=== PATIENT | female | born 1970 | race Caucasian/White ===

== ENCOUNTER → 2017-08-09 14:35 | Outpatient (CLI) | payer OTHER, SELFPAY ==
--- NOTE | 2017-08-09 | DI.RAD.S_ITS ---
PROCEDURE: XR ANKLE RT MIN 3V INDICATIONS: ? BONE SPUR TECHNIQUE: 3 views of the ankle were acquired. COMPARISON: None. FINDINGS: Bones: No fractures or dislocations. Ankle mortise is normally aligned. No suspicious bony lesions. Soft tissues: No tibiotalar joint effusion. Achilles tendon appears normal. IMPRESSION: Normal examination. No calcaneal bone spurring is seen. Dictated by: Jose Crocker M.D. on 08/09/2017 at 15:16 Approved by: Jose Crocker M.D. on 08/09/2017 at 15:17
== END ==
PROVIDERS: Visit Provider Chiropractor
DX: M76.821 Posterior tibial tendinitis, right leg (principal)
CPT/HCPCS: 73610

== ENCOUNTER → 2020-07-04 14:05 | Outpatient (CLI) | payer OTHER, SELFPAY ==
[2020-07-04] MEDS: COVID-19 VACC, Ad26(JANSSEN)/PF 0.5 ML IM (14:18)
== END ==
PROVIDERS: Visit Provider Internal Medicine
DX: Z23 Encounter for immunization (principal)
CPT/HCPCS: 0031A; 91303

== ENCOUNTER 2022-07-09 07:34 | Day surgery (SDC) | payer OTHER, SELFPAY ==
[2022-06-18 07:59] VITALS: BMI 24.1
--- NOTE | 2022-07-09 | PATH_ITS ---
[facility] Accession Number: [id number] No. of containers..01 Tissue . 01 Material submitted: . endometrium - ENDOMETRIAL CURETTINGS . 01 Diagnosis: Endometrium, Curettage: Superficial fragments of proliferative endometrium with focal breakdown. Negative for atypical hyperplasia and malignancy. MRV 07/14/2022 1642 Local . 01 Electronically signed: . Tina Marshall MD, Pathologist NPI- [id number] . 01 Gross description: . ENDOMETRIAL CURETTINGS: Received in formalin are minute fragments of mucoid and hemorrhagic material measuring 2.5 x 1.3 x 0.1 cm in aggregate. Submitted in toto in 1 cassette. /CPE 07/10/2022 0730 Local . 01 Pathologist provided ICD-10: N95.0 . 01 CPT . 752343 Specimen Comment: A courtesy copy of this report has been sent to [phone] Performed at: 01 [facility] [address] [place] [address] [address] [facility], [place], [place] [id number] MD Tigre Marte MD Phone: [phone]
[2022-07-09] MEDS: LACTATED RINGERS 1,000 ML 100 ML IV (07:46)
[2022-07-09 08:09] VITALS: BP 149/92; PULSE 74; RESP 16; TEMP 36.8; O2SAT 100; BMI 24.1
--- NOTE | 2022-07-09 08:46 | PM.GYNHP.1 ---
History of Present Illness History of Present Illness Reason for admission: vaginal bleeding (Postmenopausal, thickened endometrial lining) Narrative: Regina Domingo is a 52 year old female G0 with postmenopausal bleeding and endometrial hyperplasia. She presents for a D&C hysteroscopy. [facility] Social History household members: spouse Smoking Status: Never smoker alcohol intake: current Meds Home Medications and Allergies Home Medications Medication Instructions Recorded Confirmed Type lisinopril 5 mg PO DAILY 07/09/22 07/09/22 History progesterone micronized 200 mg PO DAILY 07/09/22 07/09/22 History Allergies Allergy/AdvReac Type Severity Reaction Status Date / Time No Known Drug Allergies Allergy Verified 07/09/22 07:25 Exam Vital Signs (past 8 hours): - 07/09/22 08:09 Temperature 98.2 F Pulse Rate 74 Respiratory Rate 16 Blood Pressure 149/92 H Pulse Oximetry 100 Oxygen Delivery Method Room Air Oxygen Delivery Method Room Air Narrative Exam Narrative: HEENT: No thyromegaly, no anterior cervical or supraclavicular lymphadenopathy. Lungs:Clear to auscultation bilaterally, no wheezes. Cardiovascular: Regular rate and rhythm, no murmurs, rubs, or gallops. Abdomen: No scars. No hepatosplenomegaly. No masses palpable. External genitalia: Normal Vagina: Normal Cervix: Normal Bimanual exam: 7 Week size anteverted uterus. Mobile. Rectal: No masses. Assessment & Plan Assessment & Plan narrative: Assessment: 52-year-old 0 with postmenopausal bleeding and endometrial hyperplasia Plan: D&C hysteroscopy The risks, benefits, and alternatives to the procedure were explained to the patient. The risks including bleeding, infection, and uterine perforation. She understands these risks and agrees to proceed. A full par Q was held and consent form was signed. Time Spent With Patient Time with patient: less than 30 minutes
--- NOTE | 2022-07-09 09:14 | SUR.OPER ---
Lithotomy on padded OR bed, head on pillow, arms secured on padded arm boards at <90 degrees abduction. Legs secured in padded yellow fins stirrups.
[2022-07-09 09:27] VITALS: BP 121/87; PULSE 81; RESP 8; TEMP 36.3; O2SAT 97
--- NOTE | 2022-07-09 09:27 | PM.GYNOP.1 ---
Operative Date/Time/Diagnoses Date of procedure: 07/09/22 Time of procedure: 09:27 Pre-op diagnosis: Postmenopausal bleeding Unopposed estrogen Post-op diagnosis: same Procedure & Clinicians Procedure: Procedures Operation Date: 07/09/22 08:45 Actual Procedure Side Surgeon p Hysteroscopy D&C Not Applicable Kate Torres MD Indications: Postmenopausal bleeding Unopposed estrogen Surgeon: Kate Torres Anesthesia Type: General (LMA) Operative Notes Findings: 7 week size anteverted uterus Both Fallopian tube ostia observed Thickened endometrium posteriorly cystic areas at the fundus No polyps Closure Type: not applicable Specimen(s): endometrial curettings Estimated blood loss (mL): 10 Blood products transfused: none Procedure in detail: After informed consent was obtained, the patient was taken to the operating room where she was placed in the dorsal supine position. After LMA general anesthesia was achieved, she was placed in the dorsal lithotomy position, and was prepped and draped in the usual sterile fashion. A time-out was performed. A bivalve speculum was placed into the vagina. A single-tooth tenaculum was placed on the anterior lip of the cervix. The cervical os was sequentially dilated to the # 8 Hegar dilator. The hysteroscope passed easily into the endometrial cavity. Both fallopian tube ostia were observed. There were some crypts in the fundus of the uterus. There were no polyps visualized. There was thickened endometrium posteriorly. The hysteroscope was removed from the uterus. Gentle sharp curettage was performed yielding a large amount of endometrial curettings. The instruments were removed from the uterus. The single-tooth tenaculum was removed from the anterior lip of the cervix. The bivalve speculum was removed from the vagina. Sponge, lap, and instrument counts were correct x2. The patient tolerated the procedure well, and was taken to PACU in stable condition. Complications: none Post-operative Condition: stable Disposition: PACU Plan for aftercare: Home after recoverya
[2022-07-09 09:32] VITALS: BP 118/78; PULSE 78; RESP 7; O2SAT 97
[2022-07-09 09:37] VITALS: BP 121/79; PULSE 73; RESP 12; O2SAT 99
[2022-07-09 09:42] VITALS: BP 131/83; PULSE 70; RESP 11; TEMP 36.3; O2SAT 100
[2022-07-09] MEDS: OXYCODONE/ACETAMINOPHEN 5/325 TABLET 1 TAB PO (09:57)
[2022-07-09 10:00] VITALS: BP 144/86; PULSE 70; RESP 10; O2SAT 99
--- NOTE | 2022-07-10 15:01 | PM.PREOP ---
Pre-operative Note COVID-19 Criteria for continued procedure: Non-surgical alternatives not available or appropriate per current SOC Interval Note History & Physical reviewed/Exam performed by Physician: Yes Changes to H&P: No H&P completed within 30 days and has changed as indicated here:: 07/09/22
== END 2022-07-09 10:14 | disposition home or self-care (01) ==
PROVIDERS: PCP Physician Assistant; Referring Provider Obstetrics & Gynecology; Visit Provider Obstetrics & Gynecology
PROC: 0UDB8ZZ Extraction of Endometrium, Via Natural or Artificial Opening Endoscopic (ICD-10-PCS; CPT 58558; principal; 2022-07-09 08:45)
DX: N95.0 Postmenopausal bleeding (principal); Z3A.01 Less than 8 weeks gestation of pregnancy
CPT/HCPCS: 58558; J1100; J1885; J2250; J2405; J2704; J3010

== ENCOUNTER → 2022-10-19 14:06 | Outpatient (CLI) | payer OTHER, SELFPAY ==
--- NOTE | 2022-10-19 | DI.US.S_ITS ---
ULTRASOUND OF RIGHT AXILLA: 10/19/2022 CLINICAL: Intermittent pain in right axilla. Comparison: Mammogram 02/03/2022. Color flow and real-time ultrasound of the right axilla were performed. Sawant scale images of the real-time examination were reviewed. No significant abnormalities were seen sonographically in the right axilla in the region of pain. No enlarged right axillary lymph nodes. IMPRESSION: NEGATIVE There is no sonographic evidence of malignancy. No mass. No enlarged right axillary lymph nodes. A 1 year screening mammogram is recommended. Exam findings were conveyed to the patient. Patient is advised to monitor for significant change. Clinical follow-up as needed. This exam was interpreted at Station ID: [id number]. Electronically Signed By: Akhil Gonzalez M.D. slc/:10/19/2022 15:12:26 letter sent: Normal Exam Ultrasound BI-RADS: 1 Negative
--- NOTE | 2022-10-19 | DI.US.S_ITS ---
PROCEDURE: US PELVIC COMPLETE INDICATIONS: HORMONE REPLACEMENT THERAPY TECHNIQUE: Real-time scanning was performed of the pelvic organs, with image documentation. Additional endovaginal scanning was necessary due to incomplete visualization of the adnexal and endometrial structures by transabdominal scanning. COMPARISON: None. FINDINGS: Uterus: Uterus is anteverted and normal in size at 9.1 x 4.9 x 4.3 cm. The myometrium is homogeneous. The endometrium measures 8 mm combined thickness. Midline posterior intramural fibroid measures 1.5 x 1.4 x 1.4 cm. Midline anterior intramural fibroid measures 0.7 x 0.9 x 1.0 cm Ovaries: The right ovary measures 2.3 x 1.2 x 1.4 cm, with a calculated ovarian volume of 2.1 cc. The left ovary measures 1.6 x 0.8 x 0.9 cm, with a calculated ovarian volume of 0.6 cc. The ovaries have a normal sonographic appearance. Less than 12 follicles can be seen in each ovary. No adnexal masses are seen. Other: No pathologic free abdominal or pelvic fluid. IMPRESSION: Least 2 small fibroids. Endometrial thickness, 8 mm Approved by: Bandar Miller M.D. on 10/19/2022 at 17:40
== END ==
PROVIDERS: PCP Physician Assistant; Referring Provider Family Medicine; Visit Provider Family Medicine
DX: Z79.890 Hormone replacement therapy (principal); M79.621 Pain in right upper arm; D25.1 Intramural leiomyoma of uterus
CPT/HCPCS: 76830; 76856; 76882; 93976

== ENCOUNTER → 2025-02-07 10:44 | Outpatient (CLI) | payer OTHER, SELFPAY ==
--- NOTE | 2025-02-07 10:46 | DI.US.S_ITS ---
PROCEDURE: US PELVIC COMPLETE INDICATIONS: PERIMENOPAUSAL BLEEDING TECHNIQUE: Real-time scanning was performed of the pelvic organs, with image documentation. Additional endovaginal scanning was necessary due to incomplete visualization of the adnexal and endometrial structures by transabdominal scanning. COMPARISON: [facility], US, US PELVIC COMPLETE, 10/19/2022, 14:15. FINDINGS: Uterus: 7.7 x 5.5 x 4.2 cm. The endometrial stripe is not well defined. Heterogeneous region, possibly a focal lesion, measuring 2.3 x 1.2 x 1.5 cm is present. This is probably a submucosal fibroid. Ovaries: Right ovary measures 2 mL. Left ovary was not seen. Other: Cervical nabothian cysts. IMPRESSION: Suspect submucosal fibroid measuring 2.3 by 1.5 cm. Endometrial stripe was not well defined on ultrasound. If there is further clinical concern, pelvic MRI could be ordered. Dictated by: Dimitry Serna M.D. on 02/08/2025 at 7:09 Approved by: Dimitry Serna M.D. on 02/08/2025 at 7:11
== END ==
PROVIDERS: PCP Family Medicine; Referring Provider Family Medicine; Visit Provider Family Medicine
DX: N95.9 Unspecified menopausal and perimenopausal disorder (principal); N93.8 Other specified abnormal uterine and vaginal bleeding; N88.8 Other specified noninflammatory disorders of cervix uteri
CPT/HCPCS: 76830; 76856